=== PATIENT | male | born 1960 | race African-American/Black ===

== ENCOUNTER 2018-12-10 10:23 | Inpatient (IN) ==
[2018-12-10 11:06] LABS: Basophils % 0.6 % (0.0-0.8); Eosinophils # 0.7 10*3/uL (0.0-0.87); Eosinophils % 10.2 % (0.00-10.9); Hematocrit 39.4 VOL% (42.0-52.0); Hemoglobin 12.1 GM/DL (14.0-18.0); Immature Granulocytes % 0.3 %; Immature Granulocytes Absolute 0.02 #; Lymphocytes # 2.6 10*3/uL (1.4-4.0); Lymphocytes % 39.7 % (21.2-54.2); Mean Corpuscular HGB Conc 30.7 GM/DL (32-36); Mean Corpuscular Volume 91.6 FL (87-102); Mean Platelet Volume 11.6 FL (9.6-12.0); Monocytes % 10.6 % (1.7-12.7); Neutrophils % 38.6 % (38.7-73.9); Platelet Count 135 T/CUMM (130-400); Red Cell Distribution Width 14.2 % (9.3-17.3); White Blood Count 6.5 T/CUMM (4-12)
[2018-12-10 11:13] LABS: Apearance,Urine Slightly Hazy (Clear); Bilirubin,Urine Negative (Negative); Blood, Urine Negative (Negative); Glucose,Urine (UA) Negative (Negative); Ketones,Urine Negative (Negative); Mucus,Urine Occasional /LPF (Occasional); Nitrite,Urine Negative (Negative); Protein,Urine Negative; RBC,Urine 4 /HPF (0-4); Squamous Epithelial Cell,Urine Occasional /HPF (0-10); Urine Color Amber (Yellow); Urine Specific Gravity 1.026 (1.001-1.035); WBC,Urine 1 /HPF (0-6)
[2018-12-10 11:16] LABS: Partial Thromboplastin Time 28.7 SECS (0-40)
[2018-12-10 11:28] LABS: Band Neutrophils 1 % (0-10); Eosinophils 20 % (0-10); Lymphocytes 25 % (20-55); Macrocytosis 1+; Platelet Estimate Adequate; Segmented Neutrophils 45 % (50-85); Total Cells Counted 100
[2018-12-10] MEDS ORDERED: LABETALOL 20 MG/4 ML SYRINGE IV STA ×2 (11:28→14:09)
[2018-12-10 11:29] LABS: Anisocytosis 1+; Smudge Cells Few
[2018-12-10 11:34] LABS: Alanine Aminotransferase 22 U/L (16-61); Albumin 3.7 G/DL (3.4-5.0); Alkaline Phosphatase 91 U/L (45-117); Aspartate Amino Transferase 18 U/L (0-37); Barbiturates Screen,Urine Negative (Negative); Benzodiazepines Screen,Urine Negative (Negative); Blood Urea Nitrogen 22 MG/DL (7-18); Calcium 9.1 MG/DL (8.5-10.1); Cannabinoid Screen,Urine Negative (Negative); Glucose 96 MG/DL (74-106); Opiate Screen,Urine Negative (Negative); Osmolality,Calculated 283.3 MOS/KG (273-304); Phencyclidine Screen,Urine Negative (Negative); Total Protein 7.8 G/DL (6.4-8.3)
[2018-12-10] MEDS ORDERED: ONDANSETRON 4 MG/2 ML VIAL IV PRN (13:21)
[2018-12-10] MEDS ORDERED: ACETAMINOPHEN 325 MG TABLET PO PRN (13:21)
[2018-12-10] MEDS ORDERED: SODIUM CHLORIDE 0.45% 1,000 ML IV SCH (16:00)
[2018-12-10] MEDS: ATORVASTATIN 40 MG TABLET PO SCH (21:04)
[2018-12-11 05:32] LABS: Basophils # 0.1 10*3/uL (0.0-0.2); Basophils % 1.1 % (0.0-0.8); Eosinophils # 0.7 10*3/uL (0.0-0.87); Eosinophils % 11.7 % (0.00-10.9); Hematocrit 36.6 VOL% (42.0-52.0); Hemoglobin 11.3 GM/DL (14.0-18.0); Immature Granulocytes % 0.2 %; Immature Granulocytes Absolute 0.01 #; Lymphocytes # 2.9 10*3/uL (1.4-4.0); Lymphocytes % 46.1 % (21.2-54.2); Mean Corpuscular HGB Conc 30.9 GM/DL (32-36); Mean Corpuscular Volume 91.5 FL (87-102); Mean Platelet Volume 12.1 FL (9.6-12.0); Monocytes % 11.4 % (1.7-12.7); Neutrophils % 29.5 % (38.7-73.9); Platelet Count 115 T/CUMM (130-400); Red Cell Distribution Width 14.3 % (9.3-17.3); White Blood Count 6.3 T/CUMM (4-12)
[2018-12-11 05:55] LABS: Eosinophils 12 % (0-10); Hypochromasia 1+; Lymphocytes 35 % (20-55); Ovalocytes Slight; Platelet Estimate Decreased; Segmented Neutrophils 39 % (50-85); Total Cells Counted 100
[2018-12-11 06:11] LABS: Calcium 9.2 MG/DL (8.5-10.1); Osmolality,Calculated 280.4 MOS/KG (273-304); Risk Ratio 2.52; Thyroid Stimulating Hormone 0.748 uIU/ml (0.358-3.74); VLDL CHOLESTEROL 7.8 MG/DL
[2018-12-11 07:12] LABS: Troponin I 0.041 NG/ML (0.00-0.045)
[2018-12-11] MEDS ORDERED: POTASSIUM CHLORIDE 20 MEQ TABLET PO ONE (08:02)
[2018-12-11] MEDS: NICOTINE 21 MG/24 HR PATCH TRANSDERM SCH (08:18)
[2018-12-11] MEDS: PANTOPRAZOLE 40 MG TABLET PO SCH (08:18)
[2018-12-11] MEDS: ASPIRIN EC 325 MG TABLET PO SCH (08:18)
[2018-12-11] MEDS: hydrALAZINE 20 MG/1 ML VIAL IV PRN ×2 (08:43→17:09)
[2018-12-11] MEDS ORDERED: ASPIRIN EC 81 MG TABLET PO SCH (09:00)
[2018-12-11] MEDS ORDERED: BUPIVACAINE SPINAL 0.75% 2 ML AMP SPINAL ONE (14:20)
[2018-12-11] MEDS ORDERED: MORPHINE 10 MG/10 ML VIAL ONE (14:20)
[2018-12-11] MEDS ORDERED: PHENYLEPHRINE 1 MG/10 ML SYRINGE IV ONE (14:20)
[2018-12-11] MEDS: ATORVASTATIN 40 MG TABLET PO SCH (20:28)
[2018-12-11] MEDS: amLODIPine 5 MG TABLET PO SCH (20:28)
[2018-12-12] MEDS: hydrALAZINE 20 MG/1 ML VIAL IV PRN (03:28)
[2018-12-12] MEDS: ASPIRIN EC 325 MG TABLET PO SCH (08:45)
[2018-12-12] MEDS: NICOTINE 21 MG/24 HR PATCH TRANSDERM SCH (08:45)
[2018-12-12] MEDS: PANTOPRAZOLE 40 MG TABLET PO SCH (08:45)
[2018-12-12] MEDS: amLODIPine 5 MG TABLET PO SCH (08:45)
[2018-12-12 08:55] LABS: Calcium 9.6 MG/DL (8.5-10.1); Osmolality,Calculated 275.7 MOS/KG (273-304)
[2018-12-12] MEDS ORDERED: LISINOPRIL 10 MG TABLET PO ONE (14:20)
[2018-12-12 16:24] VITALS: BP 190/111
== END 2018-12-12 17:28 | disposition home or self-care (01) | DRG 65 ==
LOC: N.ED 10:23 → SUATTDRO 11:49 → N.EDINP 11:49 → N.5E 15:45
PROVIDERS: ADMIT Internal Medicine; ATTEND Internal Medicine

== ENCOUNTER 2021-03-06 01:34 | Inpatient (IN) ==
[2021-03-06] MEDS ORDERED: ASPIRIN 325 MG TABLET PO STA (02:42)
[2021-03-06 03:26] LABS: Alanine Aminotransferase 21 U/L (16-61); Albumin 3.7 G/DL (3.4-5.0); Alkaline Phosphatase 93 U/L (45-117); Aspartate Amino Transferase 20 U/L (0-37); Blood Urea Nitrogen 28 MG/DL (7-18); Calcium 9.3 MG/DL (8.5-10.1); Carbon Dioxide 22 MMOL/L (21-32); Estimated Glom Filtration Rate 101 ML/MIN; Glucose 90 MG/DL (74-106); Osmolality,Calculated 286.3 MOS/KG (273-304); Potassium 4.1 MMOL/L (3.5-5.1); Sodium 141 MMOL/L (136-145); Total Protein 8.4 G/DL (6.4-8.2)
[2021-03-06 03:35] LABS: Eosinophils # 0.3 10*3/uL (0.0-0.87); Hematocrit 39.8 VOL% (42.0-52.0); Immature Granulocytes % 0.2 %; Immature Granulocytes Absolute 0.01 #; Lymphocytes % 23.9 % (21.2-54.2); Mean Corpuscular HGB Conc 30.2 GM/DL (32-36); Mean Corpuscular Volume 91.1 FL (87-102); Mean Platelet Volume 11.6 FL (9.6-12.0); Monocytes % 14.9 % (1.7-12.7); Platelet Count 111 T/CUMM (130-400); Red Blood Count 4.37 MC/CUMM (3.8-5.5); Red Cell Distribution Width 14.5 % (9.3-17.3)
[2021-03-06 03:59] LABS: PT Patient Result 11.4 SECS (10.5-12.0); Partial Thromboplastin Time 27.5 SECS (23.9-33.8)
[2021-03-06] MEDS ORDERED: DEXTROSE 50% 25 GM/50 ML VIAL IV PRN (04:41)
[2021-03-06] MEDS ORDERED: GLUCAGON 1 MG VIAL IM PRN (04:41)
[2021-03-06] MEDS ORDERED: hydrALAZINE 20 MG/1 ML VIAL IV PRN (04:49)
[2021-03-06] MEDS ORDERED: PNEUMOCOCCAL VACCINE (13 VALENT) 0.5 ML SYRINGE IM ONE (07:28)
[2021-03-06] MEDS ORDERED: ROSUVASTATIN 20 MG TABLET PO SCH (09:00)
[2021-03-06] MEDS: GABAPENTIN 100 MG CAPSULE PO SCH (21:49)
[2021-03-07 06:39] LABS: Basophils % 1.1 % (0.0-0.8); Eosinophils # 0.4 10*3/uL (0.0-0.87); Eosinophils % 10.7 % (0.00-10.9); Hematocrit 40.3 VOL% (42.0-52.0); Hemoglobin 12.8 GM/DL (14.0-18.0); Immature Granulocytes % 0.3 %; Immature Granulocytes Absolute 0.01 #; Lymphocytes # 0.8 10*3/uL (1.4-4.0); Lymphocytes % 20.6 % (21.2-54.2); Mean Corpuscular HGB Conc 31.8 GM/DL (32-36); Mean Corpuscular Volume 87.8 FL (87-102); Mean Platelet Volume 11.1 FL (9.6-12.0); Neutrophils % 53.3 % (38.7-73.9); Platelet Count 105 T/CUMM (130-400); Red Blood Count 4.59 MC/CUMM (3.8-5.5); Red Cell Distribution Width 14.1 % (9.3-17.3); White Blood Count 3.6 T/CUMM (4-12)
[2021-03-07 07:09] LABS: Calcium 9.9 MG/DL (8.5-10.1); Osmolality,Calculated 273.7 MOS/KG (273-304); Potassium 3.7 MMOL/L (3.5-5.1); Risk Ratio 2.48; VLDL Cholesterol 7.6 MG/DL
[2021-03-07] MEDS ORDERED: ASPIRIN EC 325 MG TABLET PO SCH (09:00)
[2021-03-07] MEDS: GABAPENTIN 100 MG CAPSULE PO SCH (09:21)
[2021-03-07] MEDS: ASPIRIN EC 81 MG TABLET PO SCH (09:21)
[2021-03-07] MEDS: CLOPIDOGREL 75 MG TABLET PO SCH (09:22)
[2021-03-07] MEDS ORDERED: MAGNESIUM HYDROXIDE SUSP 30 ML UDCUP PO ONE (12:53)
[2021-03-07] MEDS: ASCORBIC ACID 500 MG TABLET PO SCH (15:22)
[2021-03-07] MEDS: MULTIVITAMIN (CENTRUM) TABLET PO SCH (15:23)
[2021-03-07] MEDS: GABAPENTIN 300 MG CAPSULE PO SCH ×2 (15:23→22:33)
[2021-03-07] MEDS: POLYETHYLENE GLYCOL POWDER 17 GM PACK PO SCH ×2 (15:23→22:34)
[2021-03-07] MEDS: DOCUSATE SODIUM 100 MG CAPSULE PO SCH ×2 (15:23→22:34)
[2021-03-07] MEDS: ROSUVASTATIN 20 MG TABLET PO SCH (22:33)
[2021-03-08] MEDS ORDERED: LUBIPROSTONE 8 MCG CAPSULE PO SCH (09:00)
[2021-03-08] MEDS: POLYETHYLENE GLYCOL POWDER 17 GM PACK PO SCH (09:30)
[2021-03-08] MEDS: ASPIRIN EC 81 MG TABLET PO SCH (09:30)
[2021-03-08] MEDS: CLOPIDOGREL 75 MG TABLET PO SCH (09:30)
[2021-03-08] MEDS: GABAPENTIN 300 MG CAPSULE PO SCH ×3 (09:30→20:13)
[2021-03-08] MEDS: ASCORBIC ACID 500 MG TABLET PO SCH (09:30)
[2021-03-08] MEDS: DOCUSATE SODIUM 100 MG CAPSULE PO SCH ×2 (09:30→20:13)
[2021-03-08] MEDS: MULTIVITAMIN (CENTRUM) TABLET PO SCH (09:30)
[2021-03-08] MEDS: LINACLOTIDE 145 MCG CAPSULE PO SCH (11:17)
[2021-03-08] MEDS: ROSUVASTATIN 20 MG TABLET PO SCH (20:13)
[2021-03-08 23:25] LABS: Bacteria,Urine Occasional /HPF (Few); Bilirubin,Urine Negative (Negative); Blood, Urine Negative (Negative); Calcium Oxalate Crystals,Urine Occasional /HPF (Few); Glucose,Urine (UA) Negative (Negative); Hyaline Casts,Urine 9 /LPF (0-3); Ketones,Urine Negative (Negative); Mucus,Urine Few /LPF (Occasional); Nitrite,Urine Negative (Negative); Protein,Urine Negative; RBC,Urine 7 /HPF (0-4); Squamous Epithelial Cell,Urine Occasional /HPF (0-10); Urine Appearance CLEAR (Clear); Urine Color Amber (Yellow); Urine Specific Gravity 1.027 (1.001-1.035); Urine Urobilinogen < 2.0 EU/DL (0.2-1.0)
[2021-03-08 23:53] LABS: Barbiturates Screen,Urine Negative (Negative); Benzodiazepines Screen,Urine Negative (Negative); Cannabinoid Screen,Urine Negative (Negative); Opiate Screen,Urine Negative (Negative); Phencyclidine Screen,Urine Negative (Negative)
[2021-03-09] MEDS ORDERED: POLYETHYLENE GLYCOL POWDER 17 GM PACK PO SCH (09:00)
[2021-03-09] MEDS: ASPIRIN EC 81 MG TABLET PO SCH (09:21)
[2021-03-09] MEDS: MULTIVITAMIN (CENTRUM) TABLET PO SCH (09:21)
[2021-03-09] MEDS: DOCUSATE SODIUM 100 MG CAPSULE PO SCH ×2 (09:21→20:00)
[2021-03-09] MEDS: ASCORBIC ACID 500 MG TABLET PO SCH (09:21)
[2021-03-09] MEDS: GABAPENTIN 300 MG CAPSULE PO SCH ×3 (09:22→20:00)
[2021-03-09] MEDS: LINACLOTIDE 145 MCG CAPSULE PO SCH (09:23)
[2021-03-09] MEDS: CLOPIDOGREL 75 MG TABLET PO SCH (09:24)
[2021-03-09] MEDS ORDERED: amLODIPine 5 MG TABLET PO ONE (13:44)
[2021-03-09] MEDS: ROSUVASTATIN 20 MG TABLET PO SCH (20:00)
[2021-03-10] MEDS ORDERED: amLODIPine 5 MG TABLET PO SCH (09:00)
[2021-03-10] MEDS: ASPIRIN EC 81 MG TABLET PO SCH (09:08)
[2021-03-10] MEDS: MULTIVITAMIN (CENTRUM) TABLET PO SCH (09:08)
[2021-03-10] MEDS: ASCORBIC ACID 500 MG TABLET PO SCH (09:09)
[2021-03-10] MEDS: GABAPENTIN 300 MG CAPSULE PO SCH (09:09)
[2021-03-10] MEDS: DOCUSATE SODIUM 100 MG CAPSULE PO SCH (09:09)
[2021-03-10] MEDS: CLOPIDOGREL 75 MG TABLET PO SCH (09:09)
[2021-03-10 12:00] VITALS: BP 144/89
== END 2021-03-10 12:40 | DRG 65 ==
LOC: N.ED 01:34 → N.EDINP 01:34 → N.TELEN 07:03
PROVIDERS: ADMIT Hospitalist; ATTEND Hospitalist